=== PATIENT | female | born 1995 | race Caucasian/White ===

== ENCOUNTER 2018-03-16 17:05 | Emergency (ER) | payer OTHER ==
--- NOTE | 2018-03-16 17:51 | ER Document Report ---
ED Neck/Back Problem - General Chief Complaint: Low Back Pain Stated Complaint: BACK/KNEE PAIN Time Seen by Provider: 03/16/18 17:16 Mode of Arrival: Ambulatory Information source: Patient - HPI Patient complains to provider of: Pain Onset: Just prior to arrival Notes: Patient is here with complaints of low back pain and right knee pain. The patient has a history of chronic low back pain for which she is seeing physical therapy for. She states that her dog knocked her over and she fell onto her back and now her back hurts more. This occurred just prior to arrival. She also has a history of right patellar dislocations. She states that she felt like her right patella dislocated and then relocated. She denies any significant pain in this area. She does complain that is mildly swollen. She is not on blood thinning medications. She denies fever. She denies abdominal pain. She denies any numbness, tingling, weakness. No bowel or bladder dysfunction. No IV drug use. No chest pain shortness of breath. No abdominal pain. No dysuria or hematuria. She denies any numbness, Nicolasa, weakness of the foot. No other injuries or complaints at this time. She declined wanting anything for pain at this time. Past Medical History - Social History Smoking Status: Never Smoker Chew tobacco use (# tins/day): No Frequency of alcohol use: None Drug Abuse: None Family History: Reviewed & Not Pertinent Patient has suicidal ideation: No Patient has homicidal ideation: No Renal/ Medical History: Denies: Hx Peritoneal Dialysis Review of Systems - Review of Systems -: Yes All other systems reviewed and negative Physical Exam - Vital signs Vitals: Temp Pulse BP Pulse Ox 99.4 F 106 H 133/69 H 98 03/16/18 17:12 03/16/18 17:12 03/16/18 17:12 03/16/18 17:12 - Notes Notes: GENERAL: alert, cooperative, nontoxic, no distress. HEAD: normocephalic, atraumatic EYES: conjunctiva pink without discharge, no external redness or swelling. EARS: no external swelling, no external redness NOSE: atraumatic, no external swelling MOUTH/THROAT: mucous membranes moist and pink, posterior pharynx without erythema, swelling, exudate. No trismus or drooling. NECK: soft, supple, full range of motion, no meningismus. CHEST: no distress, lungs clear and equal throughout. No wheezing, rales, rhonchi. CARDIAC: regular rate and rhythm, no murmur, normal capillary refill, normal pulses. No peripheral edema noted. ABDOMEN: soft, nontender, no pusatile mass. BACK: No CVA tenderness. Mild tenderness to the sacrum. No step-offs or crepitus. Full range of motion. No swelling. EXTREMITIES: full range of motion of all extremities. Mild tenderness to palpation of the right anterior knee. Minimal swelling noted. No redness. Patella appears to be intact. No obvious ligament instability. Compartments are soft. Normal pulse and sensation distally. Ankle and hip exam are unremarkable. NEURO: alert and oriented A&O x 3, no focal deficits, full range of motion of all extremities. 5 out of 5 flexion and extension of the lower extremities bilaterally. Patellar and Achilles deep tendon reflexes are +2 bilaterally. Normal sensation with no saddle anesthesia. Patient can dorsiflex the great toes bilaterally. PYSCH: appropriate mood, affect. Patient is cooperative. SKIN: pink, warm, dry, no rash. Course - Re-evaluation Re-evalutation: 03/16/18 18:23 Patient is nontoxic-appearing with stable vitals. The patient has a history of chronic back pain as well as chronic patellar dislocations. She states that her dog knocked her over she felt like her patella dislocated and relocated and she fell and injured her back. She denies any head injury. No blood thinners. No sign or risk of cauda equina, epidural abscess/bleed, discitis, osteomyelitis, AAA, pyelonephritis. No sign of head injury. She is a benign neurological exam. No signs of infection. X-rays of the right knee, lumbar spine, sacrum coccyx are negative for acute findings. The patient will be discharged home with instructions to take her medication that she normally takes as needed for pain. Follow-up with her doctor if not better in 1 week, sooner for worsening pain, fever, numbness, tingling, weakness, bowel or bladder dysfunction, or for any further concerns. The patient is noted to have elevated blood pressure during today's emergency department visit. The patient was informed of this finding. The patient was instructed that this may be related to pre-hypertension and requires further evaluation with a primary care provider. The patient has no hypertensive symptoms at this time. The patient's emergency department workup and current diagnosis were explained to the patient and or family. Follow-up instructions were provided. Medications if prescribed were discussed. Instructions for when to return to the emergency department including specific worrisome symptoms were discussed with the patient and/or family. - Vital Signs Vital signs: Temp Pulse Resp BP Pulse Ox 99.4 F 106 H 133/69 H 98 03/16/18 17:12 03/16/18 17:12 03/16/18 17:12 03/16/18 17:12 - Diagnostic Test Radiology reviewed: Image reviewed, Reports reviewed - Negative right knee, lumbar spine, sacrum. Discharge - Discharge Clinical Impression: Contusion Qualifiers: Encounter type: initial encounter Contusion area: lower back Qualified Code(s) : S30.0XXA - Contusion of lower back and pelvis, initial encounter Acute lumbar myofascial strain Qualifiers: Encounter type: initial encounter Qualified Code(s): S39.012A - Strain of muscle, fascia and tendon of lower back, initial encounter Strain of right knee Qualifiers: Encounter type: initial encounter Qualified Code(s): S86.911A - Strain of unspecified muscle(s) and tendon(s) at lower leg level, right leg, initial encounter Condition: Stable Disposition: HOME, SELF-CARE Instructions: Low Back Pain ([facility]), Muscle Strain ([facility]), Ice Packs ([facility]), Warm Packs ([facility]) Additional Instructions: Take her normal medications as needed. Drink lots of fluids. Ice to the sore areas. Follow-up with your doctor if not better in 1 week, sooner for worsening pain, fever, numbness, tingling, weakness, difficulty controlling her bowels or bladder, redness, or for any further concerns. Your blood pressure was elevated during today's visit. Have this rechecked with your doctor. Forms: Elevated Blood Pressure, Smoking Cessation Education Referrals: [facility] / [facility] [Provider Group] - Follow up as needed
--- NOTE | 2018-03-16 18:19 | RADIOLOGY REPORT (SQ) ---
EXAM DESCRIPTION: SACRUM AND COCCYX COMPLETED DATE/TIME: 03/16/2018 6:03 pm REASON FOR STUDY: fall, pain COMPARISON: None. NUMBER OF VIEWS: Three views. TECHNIQUE: AP, lateral, and tilt views of the sacrum and coccyx. LIMITATIONS: None. FINDINGS: MINERALIZATION: Normal. BONES: No acute fracture or dislocation. No worrisome bone lesions. SOFT TISSUES: No soft tissue swelling. No foreign body. OTHER: No other significant finding. IMPRESSION: NEGATIVE STUDY OF THE SACRUM AND COCCYX. TECHNICAL DOCUMENTATION: JOB ID: [id number] [employer]- All Rights Reserved Reading location - IP/workstation name: [email or web address]
--- NOTE | 2018-03-16 18:20 | RADIOLOGY REPORT (SQ) ---
EXAM DESCRIPTION: KNEE RIGHT 4 VIEWS COMPLETED DATE/TIME: 03/16/2018 6:03 pm REASON FOR STUDY: fall, pain COMPARISON: None. NUMBER OF VIEWS: Four views. TECHNIQUE: AP, lateral, and both oblique radiographic images acquired of the right knee. LIMITATIONS: None. FINDINGS: MINERALIZATION: Normal. BONES: No acute fracture or dislocation. No worrisome bone lesions. JOINT: No effusion. SOFT TISSUES: No soft tissue swelling. No radio-opaque foreign body. OTHER: No other significant finding. IMPRESSION: NEGATIVE STUDY OF THE RIGHT KNEE. NO RADIOGRAPHIC EVIDENCE OF ACUTE INJURY. TECHNICAL DOCUMENTATION: JOB ID: [id number] [employer]- All Rights Reserved Reading location - IP/workstation name: [email or web address]
--- NOTE | 2018-03-16 18:21 | RADIOLOGY REPORT (SQ) ---
EXAM DESCRIPTION: L SPINE WHOLE COMPLETED DATE/TIME: 03/16/2018 6:03 pm REASON FOR STUDY: fall, pain COMPARISON: None. NUMBER OF VIEWS: Five views including obliques. TECHNIQUE: AP, lateral, oblique, and sacral radiographic images acquired of the lumbar spine. LIMITATIONS: None. FINDINGS: MINERALIZATION: Normal. SEGMENTATION: Normal. No transitional anatomy. ALIGNMENT: Normal. VERTEBRAE: Maintained height. No fracture or worrisome bone lesion. DISCS: Preserved height. No significant osteophytes or end plate irregularity. POSTERIOR ELEMENTS: Pedicles and facets are intact. No pars defect or posterior arch defects. HARDWARE: None in the spine. PARASPINAL SOFT TISSUES: Normal. PELVIS: Intact as visualized. No fractures or worrisome bone lesions. SI joints intact. OTHER: No other significant finding. IMPRESSION: NORMAL 5 VIEW LUMBAR SPINE. TECHNICAL DOCUMENTATION: JOB ID: [id number] [employer]- All Rights Reserved Reading location - IP/workstation name: [email or web address]
[2018-03-16] MEDS ORDERED: IBUPROFEN 600 MG TABLET PO ONE (18:24)
[2018-03-16 18:37] VITALS: BP 125/67
== END 2018-03-16 18:37 | disposition home or self-care (01) ==
LOC: ER 17:05
DX: S30.0XXA Contusion of lower back and pelvis, initial encounter (principal); S39.012A Strain of muscle, fascia and tendon of lower back, initial encounter; S86.911A Strain of unspecified muscle(s) and tendon(s) at lower leg level, right leg, initial encounter; G89.29 Other chronic pain; M25.561 Pain in right knee; M79.89 Other specified soft tissue disorders; R03.0 Elevated blood-pressure reading, without diagnosis of hypertension; W19.XXXA Unspecified fall, initial encounter
CPT/HCPCS: 72110; 72220; 99283

== ENCOUNTER 2018-11-10 19:43 | Emergency (ER) | payer OTHER ==
[2018-11-10 22:02] LABS: AMORPHOUS SEDIMENT,URINE TRACE /HPF; APPEARANCE,URINE CLOUDY; BILIRUBIN,URINE NEGATIVE (NEGATIVE); COLOR,URINE STRAW; GLUCOSE, URINE NEGATIVE (NEGATIVE); KETONES,URINE NEGATIVE (NEGATIVE); LEUKOCYTE ESTERASE,URINE NEGATIVE (NEGATIVE); NITRITE,URINE NEGATIVE (NEGATIVE); PROTEIN,URINE NEGATIVE (NEGATIVE); URINE SPECIFIC GRAVITY 1.005; UROBILINOGEN,URINE NEGATIVE mg/dL (<2.0)
--- NOTE | 2018-11-10 23:30 | RADIOLOGY REPORT (SQ) ---
EXAM DESCRIPTION: US TRANSVAGINAL COMPLETED DATE/TME: 11/10/2018 21:13 CLINICAL HISTORY: 23 years, Female, preg of unknown location COMPARISON: None. TECHNIQUE: LIMITATIONS: None. FINDINGS: There is a live 6 week 4 day IUP, based on a crown-rump length of 7 mm. Embryonic cardiac activity was measured at 126 bpm. There is an 11 x 8 x 4 mm subchorionic hemorrhage. There is a 1.9 cm complex cystic lesion in the right ovary, possibly a hemorrhagic corpus luteum cyst. The left ovary was not visualized. IMPRESSION: Live IUP with a small subchorionic hemorrhage. 1.9 cm possible corpus luteum cyst in the right ovary. copyright 2010 [employer]- All Rights Reserved
--- NOTE | 2018-11-10 23:31 | ER Document Report ---
ED General - General Chief Complaint: OB Problem (<20wks) Stated Complaint: ABDOMINAL PAIN Time Seen by Provider: 11/10/18 20:43 Primary Care Provider: BERNARDO GIL [Primary Care Provider] - Follow up as needed Notes: Patient is a 23-year-old female at approximately 6 weeks by LMP who presents with lower abdominal cramping and changed vaginal discharge for the last 24 hours. Describes the lower abdominal cramping as being a mild, aching, diffuse pain to the pelvis and suprapubic region. States pain started gradually, comes and goes. Nothing seems to improve or worsen the discomfort. No history of similar pain during this . Patient was concerned that she could be having a miscarriage. Has not yet established care for this . Denies any vaginal bleeding. No dysuria. No fever or constitutional symptoms. TRAVEL OUTSIDE OF THE [place] IN LAST 30 DAYS: No Past Medical History - General Information source: Patient - Social History Smoking Status: Never Smoker Chew tobacco use (# tins/day): No Frequency of alcohol use: None Drug Abuse: None Lives with: Spouse/Significant other Family History: Reviewed & Not Pertinent Patient has suicidal ideation: No Patient has homicidal ideation: No Renal/ Medical History: Denies: Hx Peritoneal Dialysis Review of Systems - Review of Systems Notes: Constitutional: Negative for fever. HENT: Negative for sore throat. Eyes: Negative for visual changes. Cardiovascular: Negative for chest pain. Respiratory: Negative for shortness of breath. Gastrointestinal: Positive for lower abdominal pain Genitourinary: Negative for dysuria. Musculoskeletal: Negative for back pain. Skin: Negative for rash. Neurological: Negative for headaches, weakness or numbness. 10 point ROS negative except as marked above and in HPI. Physical Exam - Vital signs Vitals: Temp Pulse Resp BP Pulse Ox 99.0 F 82 16 116/62 100 11/10/18 20:31 11/10/18 20:31 11/10/18 20:31 11/10/18 20:31 11/10/18 20:31 Interpretation: Normal Notes: PHYSICAL EXAMINATION: GENERAL: Well-appearing, well-nourished and in no acute distress. HEAD: Atraumatic, normocephalic. EYES: Pupils equal round and reactive to light, extraocular movements intact, sclera anicteric, conjunctiva are normal. ENT: nares patent, oropharynx clear without exudates. Moist mucous membranes. NECK: Normal range of motion, supple without lymphadenopathy LUNGS: Breath sounds clear to auscultation bilaterally and equal. No wheezes rales or rhonchi. HEART: Regular rate and rhythm without murmurs ABDOMEN: Soft, nontender, normoactive bowel sounds. No guarding, no rebound. No masses appreciated. EXTREMITIES: Normal range of motion, no pitting or edema. No cyanosis. NEUROLOGICAL: No focal neurological deficits. Moves all extremities spontaneously and on command. PSYCH: Normal mood, normal affect. SKIN: Warm, Dry, normal turgor, no rashes or lesions noted. Course - Re-evaluation Re-evalutation: 11/10/18 23:30 Patient is currently and presenting with lower abdominal pain. No vaginal bleeding. States that she has had some change in vaginal discharge. Formal transvaginal ultrasound does reveal an intrauterine with appropriate heart rate. Small subchorionic hemorrhage is noted but patient has not had any active bleeding. Patient did refuse blood work which would allow hCG level establishment and RhoGam workup given presence of subcho rionic hemorrhage. She does however declined these measures stating she is afraid of needles and will not allow blood work to proceed. Patient denies any dysuria and urinalysis is not consistent with an acute urinary tract infection. The patient does not have any focal right lower quadrant tenderness, rebound or guarding to suggest acute appendicitis. No right upper quadrant tenderness to suggest cholestasis of or an acute cholecystitis. Patient has tolerated oral intake here in the emergency department without difficulty. Vitals are within normal limits. At this time will discharge with return precautions and follow-up recommendations. Verbal discharge instructions given a the bedside and opportunity for questions given. Medication warnings reviewed. Patient is in agreement with this plan and has verbalized understanding of return precautions and the need for primary care follow-up in the next 24-72 hours. - Vital Signs Vital signs: Temp Pulse Resp BP Pulse Ox 98.4 F 70 18 118/58 L 99 11/10/18 23:48 11/10/18 23:48 11/10/18 23:48 11/10/18 23:48 11/10/18 23:48 - Diagnostic Test Radiology reviewed: Image reviewed, Reports reviewed Discharge - Discharge Clinical Impression: First trimester , with abdominal pain of lower quadrant, antepartum Condition: Good Disposition: HOME, SELF-CARE Additional Instructions: You were seen for abdominal pain during . Your ultrasound and labs are normal today. He did refuse blood work which would allow us to establish a baseline hormone level. The exact cause your pain is uncertain but is likely related to your developing baby. Please follow-up with your [facility]PAIRER in the next 24-48 hours. Return to the emergency department immediately if you have worsening of your pain, have persistent vomiting, develop a fever of greater than 100.4F, begin to have vaginal bleeding, or any other symptoms that are worrisome to you. Referrals: [facility],NO [Primary Care Provider] - Follow up as needed
[2018-11-11 00:04] VITALS: BP 118/58
== END 2018-11-11 00:04 | disposition home or self-care (01) ==
LOC: ER 19:43
DX: O26.891 Other specified pregnancy related conditions, first trimester (principal); R10.30 Lower abdominal pain, unspecified; N89.8 Other specified noninflammatory disorders of vagina; O20.8 Other hemorrhage in early pregnancy; Z3A.01 Less than 8 weeks gestation of pregnancy
CPT/HCPCS: 76817; 81001; 99284